=== PATIENT | female | born 1970 | race Caucasian/White ===

== ENCOUNTER 2021-06-09 09:49 | Emergency (ER) | payer OTHER ==
[~2021-06-09] VITALS: Ht 170.2 cm; Wt 96.2 kg
[2021-06-09] MEDS ORDERED: ONDANSETRON HCL INJ 2MG/ML 2ML 2 MG/ML VIAL IV STA (10:16)
[2021-06-09] MEDS ORDERED: IBUPROFEN 600 MG TAB PO STA (10:16)
[2021-06-09] MEDS ORDERED: SODIUM CHLORIDE 0.9% 1000ML 1,000 ML IV STA (10:16)
[2021-06-09] MEDS ORDERED: ONDANSETRON HCL INJ 2MG/ML 2ML 2 MG/ML VIAL ONE (10:50)
[2021-06-09] MEDS ORDERED: IBUPROFEN 600 MG TAB ONE (10:51)
[2021-06-09] MEDS ORDERED: SODIUM CHLORIDE 0.9% 1000ML 1,000 ML ONE (10:51)
[2021-06-09] MEDS ORDERED: POTASSIUM CHLORIDE 20 MEQ TAB CR PO STA (11:39)
[2021-06-09] MEDS ORDERED: CIPRO500 MG PO (11:39)
[2021-06-09] MEDS ORDERED: POTASSIUM CHLORIDE 20 MEQ TAB CR PO ONE (11:54)
== END 2021-06-09 11:48 | disposition home or self-care (01) ==
LOC: FSED 10:14
DX: R11.2 Nausea with vomiting, unspecified (principal); K52.9 Noninfective gastroenteritis and colitis, unspecified; R50.9 Fever, unspecified; I10 Essential (primary) hypertension
CPT/HCPCS: 80053; 80076; 81003; 85025; 87400; 96374; 99283; J2405; J7030